=== PATIENT | female | born 1995 | race Caucasian/White ===

== ENCOUNTER 2023-05-04 12:15 | Emergency (ER) | payer OTHER ==
[~2023-05-04] VITALS: Ht 162.6 cm; Wt 69.9 kg
[2023-05-04 12:35] VITALS: BP 113/69; PULSE 77; RESP 20; TEMP 98.3; O2SAT 97
[2023-05-04 13:58] LABS: APPEARANCE,URINE CLEAR (CLEAR); BILIRUBIN,URINE NEGATIVE (NEGATIVE); BLOOD, URINE 1+ (NEGATIVE); COLOR,URINE YELLOW (YELLOW); LEUKOCYTE ESTERASE ,URINE NEGATIVE (NEGATIVE); NITRITE, URINE NEGATIVE (NEGATIVE); UGLUCOSE NEGATIVE (NEGATIVE)
[2023-05-04] MEDS ORDERED: KETOROLAC 30 MG/ML VIAL IM ONE (14:00)
[2023-05-04 14:19] LABS: RBC,URINE 0-5 /HPF (0-5); TRICHOMONAS,URINE None Seen /HPF (None Seen); YEAST,URINE None Seen /HPF (None Seen)
--- NOTE | 2023-05-04 14:23 | NUR ---
Benjamin tao in ED - 05/04/23 at 1438 by [facility]SE[facility] LOWER ABDO. PAIN WITH BROWN COLORED DISCHARGE, PA AT TO PERFORM PELVIC EXAM
--- NOTE | 2023-05-04 14:42 | NUR ---
pt taken to us via w/c
--- NOTE | 2023-05-04 14:45 | NUR ---
vag swabs walked to lab
[2023-05-04] MEDS ORDERED: IBUP-426 PO (16:29)
[2023-05-04] MEDS ORDERED: VIB100 PO (16:39)
[2023-05-04] MEDS ORDERED: cefTRIAXone 500 MG in LIDOCAINE MPF 1% 1 ML IM ONE (16:40)
[2023-05-04] MEDS ORDERED: LIDOCAINE MPF 1% 5 ML ONE (17:33)
[2023-05-04] MEDS ORDERED: cefTRIAXone 500 MG VIAL ONE (17:33)
[2023-05-04 17:50] VITALS: BP 113/69; PULSE 77; RESP 20; TEMP 98.3; O2SAT 97
--- NOTE | 2023-05-04 17:50 | NUR ---
Patient discharged with v/s stable. Written and verbal after care instructions FOR [facility] given and explained. Patient alert, oriented and verbalized understanding of instructions. Ambulatory with steady gait. All questions addressed prior to discharge. ID band removed. Patient advised to follow up with PMD. Rx of IBUPROFEN given. Opportunity to ask questions provided and answered.
--- NOTE | 2023-05-04 17:51 | NUR ---
The patient's care was reviewed and supervised by ALIX HERNANDEZ RN.
== END 2023-05-04 17:50 | disposition home or self-care (01) ==
LOC: MED 12:15
DX: N83.202 Unspecified ovarian cyst, left side (principal); Z79.899 Other long term (current) drug therapy
CPT/HCPCS: 76856; 81001; 81025; 87070; 87210; 87491; 93976; 96372; 99285; J0696; J1885; J2001; Q0092